=== PATIENT | male | born 1945 | race Caucasian/White ===

== ENCOUNTER 2018-03-01 16:59 | Inpatient (IN) ==
[2018-03-01] MEDS ORDERED: SALINE FLUSH 10ml SYRINGE IVF PRN (17:17)
[2018-03-01] MEDS ORDERED: NS 1,000 ML IV ONE ×2 (17:20→18:02)
--- NOTE | 2018-03-01 17:21 | Emergency Department Report ---
Dizziness HPI - General Chief Complaint: Dizziness <Gemini Bravo 03/01/18 17:24> Stated Complaint: light headed, low bp <Gemini Bravo 03/01/18 17:24> Time Seen by Provider: 03/01/18 17:09 <Gemini Bravo 03/01/18 17:24> Source: patient <Gemini Bravo 03/01/18 17:24> Mode of arrival: ambulatory <Gemini Bravo 03/01/18 17:24> Limitations: no limitations <Gemini Bravo 03/01/18 17:24> - History of Present Illness HPI Narrative: Today he not felt well. States that he has been dizzy and a little lightheaded. He decided to take his temp at home and it was in the 60s systolic. Had taken some Meclizine prior to that for the dizziness that he was having. States that he has had trouble with his blood pressure being low in the past. He does take Losartan, Metoprolol, and triamterene/HCTZ and has taken all of those today. He states that he has cut his metoprolol in 1/2 on his own about 3 months ago as he was feeling fatigued during the day and it he felt it was likely from the metoprolol. 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 Was recently diagnosed with shingles 2 weeks ago. <Gemini Bravo 03/01/18 18:25> MD complaint: dizziness <Gemini Bravo 03/01/18 17:24> Onset (ago): hour(s) <Gemini Bravo 03/01/18 17:24> Timing: sudden onset <Gemini Bravo 03/01/18 17:24> Description: lightheadedness <Gemini Bravo 03/01/18 17:24> Severity: moderate <Gemini Bravo 03/01/18 17:24> Relieving factors: remaining still <ShellyGemini Sutton 03/01/18 17:24> Exacerbating factors: movement <Gemini Bravo 03/01/18 17:24> Associated symptoms: denies other symptoms <Gemini Bravo - 03/01/18 17:24> - Related Data Home Medications Medication Instructions Recorded Confirmed Aspirin [Adult Low Dose Aspirin EC] 81 mg PO HS 07/12/17 03/01/18 Atorvastatin Calcium 40 mg PO HS 07/12/17 03/01/18 Diclofenac [Voltaren] 1 applicatio TP DAILY PRN 07/12/17 03/01/18 Insulin Aspart [Novolog] 5 unit SQ WL 07/12/17 03/01/18 Insulin Aspart [Novolog] 7 unit SQ WB 07/12/17 03/01/18 Insulin Aspart [Novolog] 10 unit SQ WS 07/12/17 03/01/18 Insulin Detemir [Levemir] 30 unit SQ BID 07/12/17 03/01/18 Loratadine [Claritin] 10 mg PO HS 07/12/17 03/01/18 Losartan [Cozaar] 50 mg PO DAILY 07/12/17 03/01/18 Meclizine [Antivert] 25 mg PO TID PRN 07/12/17 03/01/18 Metformin HCl [Glucophage] 1,000 mg PO BID 07/12/17 03/01/18 Metoprolol Succinate 25 mg PO HS 07/12/17 03/01/18 Saxagliptin [Onglyza] 5 mg PO DAILY 07/12/17 03/01/18 Triamterene/Hctz 37.5/25 Tab 0.5 tab PO DAILY 07/12/17 03/01/18 [MAXZIDE-25 eqv] PEG 3350 17gm PACKET [Miralax] 17 gm PO DAILY PRN 12/13/17 03/01/18 Tramadol [Ultram] 50 mg PO DAILY PRN 12/13/17 03/01/18 omega-3 fatty acids 1,000 mg 1,000 mg PO DAILY 01/04/18 03/01/18 capsule <Gemini Bravo - 03/01/18 17:24> Allergies Allergy/AdvReac Type Severity Reaction Status Date / Time No Known Allergies Allergy Verified 03/01/18 17:37 <Gemini Bravo - 03/01/18 17:24> Review of Systems All systems: reviewed and negative except as stated <ShellySueGemini N 03/01/18 17:24> Constitutional: Denies: fever, chills, weakness <[facility] 03[facility] 17: 24> Cardiovascular: Denies: chest pain, palpitations, dyspnea on exertion, edema < [facility],Gemini N 03/01/18 17:24> Respiratory: Denies: cough, dyspnea, wheezes <[facility],Gemini 03/01/18 17:24> Gastrointestinal: Denies: abdominal pain, nausea, vomiting, diarrhea <No, Gemini 03/01/18 17:24> Neurological: Reports: other (dizziness). Denies: headache, weakness, numbness , paresthesias <[facility] 03/01/18 17:24> [facility]LY [facility], [facility] Patient Stated Medical History Cerebrovascular Accident No Peripheral Neuropathy Yes: FEET Paralysis No Seizures No Syncope No Cataracts Yes: LEFT EYE Hearing Loss Yes: PER H&P Angina Yes: PER H&P-25 YEARS AGO Coronary Artery Disease Yes: PTCA X 4 Hypertension Yes Asthma Yes: PER PAST ADMIT Bronchitis No Chronic Obstructive Pulmonary No Disease (COPD) Pneumonia No Pulmonary Edema No Pulmonary Embolism No Sleep Apnea No Tuberculosis No Other Respiratory No Diabetes Mellitus Type 1 Yes Diabetes Mellitus Type 2 Yes Cirrhosis No Gastroesophageal Reflux Yes: AT TIMES Disease Gastrointestinal Bleeding No Hepatitis No Hiatal Hernia No Obstructive Bowel No Ulcer No Other GI Yes: CONSTIPATION Hx Kidney Stones Yes: PER H&P Hx Renal Disease NO RENAL DISEASE NOTED IN H&P Osteoarthritis Yes Other Musculoskeletal No Cellulitis Yes: PER H&P Shingles Yes Anesthesia Reactions No Blood Transfusions No Chemotherapy No Malignant Hyperthermia No Other No Depression No Post Menopausal No Now No Clinic Medical History (Last Updated 01/04/18 @ 11:35 by Sharon Contreras APRN) Arthritis (Acute Medical) Diabetes (Acute Medical) Diabetic neuropathy (Acute Medical) HTN (hypertension) (Acute Medical) <[facility] 03/01/18 17:24> Surgical History: Multiple orthopedic procedures. Recurrent right inguinal hernia repair with mesh 09/22/2017. Right inguinal hernia 1972. Appendectomy. Heart cath,no stenets, x3 early 1989's. Excision melanoma from back. colonoscopy tubular adenoma 04/01/2007 Dr. Mendoza at [place] <Cernaesjuan Sutton 17:24> Family History: Family History (Last Updated 01/04/18 @ 11:27 by Sharon Contreras APRN) Father Ruptured thoracic aortic aneurysm Mother Cancer of breast <TeresaceferinoGemini 03/01/18 17:24> - Social History Smoking status: Never smoker <TeresaJacobesjuan Sutton 03/01/18 17:24> second hand exposure: No <TeresaJacobesa 03/01/18 17:24> Substance use type: does not use <TeresaceferinoGemini 03/01/18 17:24> Alcohol intake frequency: does not drink <TeresaJacobesa 03/01/18 17:24> Does patient use chewing tobacco?: No <TeresaceferinoGemini 03/01/18 17:24> Physical Exam - Limitations Limitations: no limitations <TeresaceferinoGemini N 03/01/18 17:24> - General General appearance: alert, in no apparent distress <TeresaceferinoGemini 03/01/18 17:24> - Normal Exams: Neck:: Full range of motion, without adenopathy, JVD, bruits or thyromegaly < TeresaJacobesa 03/01/18 17:24> Chest/Respirations:: Clear all clancy, with good airflow, and symmetry bilaterally <TeresaceferinoGemini 03/01/18 17:24> Cardiovascular:: Regular rate and rhythm, without murmur or gallop, Pulses 2+ all extremities, capillary refill, <2 seconds all extremities <TeresaceferinoGemini 03/01/18 17:24> Abdomen:: Bowel sounds positive, soft, non-tender, non-distended, no hepatosplenomegaly, masses or bruits noted <TeresaJacobesa 03/01/18 17:24> Lymphatic:: No lymphadenopathy, or lymphedema noted <TeresaceferinoGemini 03/01/18 17:24> Neurological:: Patient is alert, and oriented, cranial nerves, motor/sensory/ cerebellar, exams w/o gross deficits, to observation <Cernaesjuan Sutton 17:24> Psychiatric:: Patient exhibits, appropriate attention, emotion and affect < Gemini Bravo - 03/01/18 17:24> Course Vital Signs Temperature 97.5 F 03/01/18 17:00 Pulse Rate 107 H 03/01/18 17:00 Respiratory Rate 18 03/01/18 17:00 Blood Pressure 112/60 03/01/18 17:00 Pulse Oximetry 94 03/01/18 17:00 Temperature 97.5 F 03/01/18 17:00 Pulse Rate 104 H 03/01/18 17:33 Respiratory Rate 23 03/01/18 17:33 Blood Pressure 86/56 03/01/18 17:33 Pulse Oximetry 97 03/01/18 17:33 <Gemini Bravo - 03/01/18 17:24> Dizziness - MDM Narrative Medical decision making narrative: Fluids infusing, 1 liter in and blood pressures are 93 systolic, pulse is 100. WBC slightly elevated, lactate is 2.9. UA is clear as well as chest xray. Did talk with Dr Salgado and he will go ahead and admit given lactate and blood pressures. Unknown infectious origin antibiotics initiated. <Gemini Bravo Herman - 03/01/18 18:25> - Lab Data Attestation: I reviewed the patient's lab results. <Gemini Bravo - 03/01/18 18:25> Result diagrams: 03/01/18 17:26 03/01/18 17:26 <Gemini Bravo - 03/01/18 17:24> Lab Results 03/01/18 03/01/18 03/01/18 Range/Units 17:26 17:26 18:04 WBC 13.2 H (4.5-11.0) T/MM3 RBC 5.28 (4.50-5.90) M/MM3 Hgb 15.5 (13.5-17.5) GM/DL Hct 46.3 (41-53) % MCV 87.7 (80-100) UM3 MCH 29.4 (26-34) UUG MCHC 33.5 (31-37) GM/DL RDW Std Deviation 46.9 (36.9-50.2) FL Plt Count 242 (130-400) T/MM3 MPV 9.6 (9.4-12.4) UM3 Immature Gran % (Auto) TNP Neut % (Auto) 56.0 (33-66) % Lymph % (Auto) 35.2 (23-45) % [place] % (Auto) 7.9 (0-9.0) % Eos % (Auto) 0.7 (0-4) % Baso % (Auto) 0.2 (0-2) % Neut # (Auto) 7.4 (1.8-7.7) T/MM3 Lymph # (Auto) 4.6 (1-4.8) T/MM3 [place] # (Auto) 1.0 H (0-0.8) T/MM3 Eos # (Auto) 0.1 (0-0.5) T/MM3 Baso # (Auto) 0.0 (0-0.2) T/MM3 Abs Immat Gran (auto) TNP Turbidity < 20 (0-20) Sodium 139 (134-144) MEQ/L Potassium 4.7 (3.6-5) MEQ/L Chloride 99 (98-107) MEQ/L Carbon Dioxide 26 (22-30) MEQ/L Anion Gap 14 (5-15) MEQ/L BUN 37.0 H (9-20) MG/DL Creatinine 1.5 (0.8-1.5) mg/dL Estimated Creat Clear 61 GFR Calculation 46 BUN/Creatinine Ratio 25 (6-26) RATIO Glucose 188 H (75-110) MG/DL Calculated Osmolality 282 H (261-280) MOSM/KG Calcium 10.2 (8.4-10.2) MG/DL Total Bilirubin 0.40 (0.20-1.30) MG/DL Icterus Index < 2 (0-7) AST 23 (17-59) U/L ALT 26 (1-50) U/L Alkaline Phosphatase 121 (38-126) U/L Troponin I 0.018 (0-0.12) ng/ml Total Protein 7.5 (6.3-8.2) g/dL Albumin 4.4 (3.5-5.0) g/dL Globulin 3.1 (2.4-3.6) G/DL Albumin/Globulin Ratio 1.4 (1.1-2.2) RATIO Plasma Lactate 2.9 H (0.6-2.2) MMOL/L Specimen Hemolysis < 15 (0-25) Ur Collection Type Urine, void-cc/notcc Urine Color Yellow (YELLOW) Urine Clarity Clear Urine pH 5.0 (5.0-8.0) Ur Specific [place] 1.025 (1.015-1.025) Urine Protein Trace A (NEGATIVE) Urine Glucose (UA) 1+ A (NEGATIVE) Urine Ketones 1+ A (NEGATIVE) Urine Occult Blood Negative (NEGATIVE) Urine Nitrate Negative (NEGATIVE) Urine Bilirubin Negative (NEGATIVE) Urine Urobilinogen 0.2 (NORMAL) EU/DL Ur Leukocyte Esterase Negative (NEGATIVE) Urinalysis Comment Microscopic not ind. <Tao Silva - 03/01/18 17:35> Lab Results 03/01/18 03/01/18 03/01/18 Range/Units 17:26 17:26 18:04 WBC 13.2 H (4.5-11.0) T/MM3 RBC 5.28 (4.50-5.90) M/MM3 Hgb 15.5 (13.5-17.5) GM/DL Hct 46.3 (41-53) % MCV 87.7 (80-100) UM3 MCH 29.4 (26-34) UUG MCHC 33.5 (31-37) GM/DL RDW Std Deviation 46.9 (36.9-50.2) FL Plt Count 242 (130-400) T/MM3 MPV 9.6 (9.4-12.4) UM3 Immature Gran % (Auto) TNP Neut % (Auto) 56.0 (33-66) % Lymph % (Auto) 35.2 (23-45) % [place] % (Auto) 7.9 (0-9.0) % Eos % (Auto) 0.7 (0-4) % Baso % (Auto) 0.2 (0-2) % Neut # (Auto) 7.4 (1.8-7.7) T/MM3 Lymph # (Auto) 4.6 (1-4.8) T/MM3 [place] # (Auto) 1.0 H (0-0.8) T/MM3 Eos # (Auto) 0.1 (0-0.5) T/MM3 Baso # (Auto) 0.0 (0-0.2) T/MM3 Abs Immat Gran (auto) TNP Turbidity < 20 (0-20) Sodium 139 (134-144) MEQ/L Potassium 4.7 (3.6-5) MEQ/L Chloride 99 (98-107) MEQ/L Carbon Dioxide 26 (22-30) MEQ/L Anion Gap 14 (5-15) MEQ/L BUN 37.0 H (9-20) MG/DL Creatinine 1.5 (0.8-1.5) mg/dL Estimated Creat Clear 61 GFR Calculation 46 BUN/Creatinine Ratio 25 (6-26) RATIO Glucose 188 H (75-110) MG/DL Calculated Osmolality 282 H (261-280) MOSM/KG Calcium 10.2 (8.4-10.2) MG/DL Total Bilirubin 0.40 (0.20-1.30) MG/DL Icterus Index < 2 (0-7) AST 23 (17-59) U/L ALT 26 (1-50) U/L Alkaline Phosphatase 121 (38-126) U/L Troponin I 0.018 (0-0.12) ng/ml Total Protein 7.5 (6.3-8.2) g/dL Albumin 4.4 (3.5-5.0) g/dL Globulin 3.1 (2.4-3.6) G/DL Albumin/Globulin Ratio 1.4 (1.1-2.2) RATIO Plasma Lactate 2.9 H (0.6-2.2) MMOL/L Specimen Hemolysis < 15 (0-25) Ur Collection Type Urine, void-cc/notcc Urine Color Yellow (YELLOW) Urine Clarity Clear Urine pH 5.0 (5.0-8.0) Ur Specific [place] 1.025 (1.015-1.025) Urine Protein Trace A (NEGATIVE) Urine Glucose (UA) 1+ A (NEGATIVE) Urine Ketones 1+ A (NEGATIVE) Urine Occult Blood Negative (NEGATIVE) Urine Nitrate Negative (NEGATIVE) Urine Bilirubin Negative (NEGATIVE) Urine Urobilinogen 0.2 (NORMAL) EU/DL Ur Leukocyte Esterase Negative (NEGATIVE) Urinalysis Comment Microscopic not ind. <Gemini Bravo 03/01/18 18:25> - Radiology Data Attestation: I reviewed the patient's radiology results. <Gemini Bravo 03/15 18:25> Chest xray: no acute cardiopulmonary process <Cernaesa N - 03/01/18 18:25> - EKG Data EKG #1 EKG results narrative: Accelerated junctional rhythm. 107 bpm. No STEMI. <Tao Silva Suzette - 03/01/18 17:35> Disposition Clinical Impression: Sepsis Qualifiers: Sepsis type: sepsis due to unspecified organism Qualified Code(s): A41.9 - Sepsis, unspecified organism <TeresaceferinoGemini N 03/01/18 18:25> Disposition: 02 To [facility] Acute Care <NoceferinoGemini N 03/01/18 18:25> Condition: Stable <NocfeerinoGemini N 03/01/18 18:25> Instructions: <TeresaceferinoGemini N 03/01/18 17:24> Prescriptions: No Action Metoprolol Succinate 25 mg PO HS Aspirin [Adult Low Dose Aspirin EC] 81 mg PO HS Insulin Aspart [Novolog] 10 unit SQ WS Insulin Aspart [Novolog] 5 unit SQ WL Insulin Detemir [Levemir] 30 unit SQ BID Meclizine [Antivert] 25 mg PO TID PRN PRN Reason: Dizziness Losartan [Cozaar] 50 mg PO DAILY Diclofenac [Voltaren] 1 applicatio TP DAILY PRN PRN Reason: Pain Atorvastatin Calcium 40 mg PO HS Triamterene/Hctz 37.5/25 Tab [MAXZIDE-25 eqv] 0.5 tab PO DAILY Saxagliptin [Onglyza] 5 mg PO DAILY PEG 3350 17gm PACKET [Miralax] 17 gm PO DAILY PRN PRN Reason: Constipation Tramadol [Ultram] 50 mg PO DAILY PRN PRN Reason: Pain Loratadine [Claritin] 10 mg PO HS Insulin Aspart [Novolog] 7 unit SQ WB Metformin HCl [Glucophage] 1,000 mg PO BID omega-3 fatty acids 1,000 mg capsule 1,000 mg PO DAILY <NocefernioGemini N 03/15 17:24> Referrals: Joni Montilla MD [Family Provider] - <Gemini Bravo - 17:24> Forms: <Gemini Bravo - 03/01/18 17:24> Time of Disposition: 18:22 <NoPipo de la vegaa N - 03/01/18 18:25> - Seen By: midlevel <Gemini Bravo N - 03/01/18 18:25>
[2018-03-01] MEDS ORDERED: LEVOFLOXACIN PB 750 MG/150 ML BAG IV SCH (18:00)
[2018-03-01] MEDS ORDERED: CEFEPIME 1 GM in NS 100 ML IV ONE (18:00)
[2018-03-01] MEDS ORDERED: VANCOMYCIN - PHARMACY CONSULT MC ONE (18:30)
--- NOTE | 2018-03-01 18:45 | History & Physical Report ---
History of Present Illness Date: 03/01/18 Chief complaint: Dizziness, Severe sepsis HPI: Abigail is a 72 yr old male who presents to ER for evaluation of dizziness. Patient states that he did not feel well yesterday as he was somewhat fatigued. This morning he woke up and began feeling dizzy. He did not improve throughout the day and so he checked his blood pressure at home. He was found to be hypotensive with a systolic in the 60s. He contacted his primary care provider, Dr. Montilla's office who recommended emergency room evaluation and treatment. Initial blood pressure in the emergency room was 112/60, however, it has decreased to 82/49. Patient has been tachycardic heart rate of 107. White count was find be mildly elevated at 13.2. Chemistry panel overall unremarkable, troponin 0.018, venous lactate is elevated at 2.9. Urinalysis showed trace protein, 1+ glucose and 1+ ketones. Chest x-ray was unremarkable. She was given IV fluid bolus given hypotension and tachycardia as he didn't like for sepsis. He was then started on IV cefepime and IV vancomycin for antimicrobial coverage. The hospitalist services were contacted and accepted patient for inpatient admission or evaluation and treatment. She does report that he has had intermittent episodes of dizziness over the past year and reports that "no one can figure out why." He does take meclizine as needed. He also reports that he was diagnosed with shingles 2 weeks ago and has been on steroids since that time. He has noted that his blood sugars have been slightly elevated since on steroids. Otherwise has had no recent illnesses or injuries. Denies any fevers or chills. Review of Systems All systems PM: 10-point ROS was reviewed, no additional remarkable complaints except - Constitutional Constitutional: Present: fatigue - Integumentary/Breasts Integumentary: Present: lesions (Recent shingles, Right forehead) - Neurological Neurological: Present: dizziness Past Medical History Medical History: Medical History (Last Updated 01/04/18 @ 11:35 by Sharon Contreras APRN) Arthritis Diabetes Diabetic neuropathy HTN (hypertension) Medical History Updates: Chronic dizziness. Shingles Surgical History: Colonoscopy-01/30/18- Dr. De Leon. Multiple orthopedic procedures. Recurrent right inguinal hernia repair with mesh 09/22/2017. Right inguinal hernia 1971. Appendectomy. Heart cath,no stenets, x3 early 1989 's. Excision melanoma from back. colonoscopy tubular adenoma 04/01/2007 Dr. 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 Mnotilla Manager Documentation is unknown, patient reports he saw somebody in [place] years ago Medications Home Medications Medication Instructions Recorded Confirmed Type Aspirin [Adult Low Dose Aspirin EC] 81 mg PO HS 07/12/17 03/01/18 History Atorvastatin Calcium 40 mg PO HS 07/12/17 03/01/18 History Diclofenac [Voltaren] 1 applicatio TP DAILY PRN 07/12/17 03/01/18 History Insulin Aspart [Novolog] 5 unit SQ WL 07/12/17 03/01/18 History Insulin Aspart [Novolog] 7 unit SQ WB 07/12/17 03/01/18 History Insulin Aspart [Novolog] 10 unit SQ WS 07/12/17 03/01/18 History Insulin Detemir [Levemir] 30 unit SQ BID 07/12/17 03/01/18 History Loratadine [Claritin] 10 mg PO HS 07/12/17 03/01/18 History Losartan [Cozaar] 50 mg PO DAILY 07/12/17 03/01/18 History Meclizine [Antivert] 25 mg PO TID PRN 07/12/17 03/01/18 History Metformin HCl [Glucophage] 1,000 mg PO BID 07/12/17 03/01/18 History Metoprolol Succinate 25 mg PO HS 07/12/17 03/01/18 History Saxagliptin [Onglyza] 5 mg PO DAILY 07/12/17 03/01/18 History Triamterene/Hctz 37.5/25 Tab 0.5 tab PO DAILY 07/12/17 03/01/18 History [MAXZIDE-25 eqv] PEG 3350 17gm PACKET [Miralax] 17 gm PO DAILY PRN 12/13/17 03/01/18 History Tramadol [Ultram] 50 mg PO DAILY PRN 12/13/17 03/01/18 History omega-3 fatty acids 1,000 mg 1,000 mg PO DAILY 01/04/18 03/01/18 History capsule Acyclovir [Zovirax] 800 mg PO 5XD 03/01/18 03/01/18 History cephALEXin [Cephalexin] 500 mg PO BID 03/01/18 03/01/18 History Allergies Allergy/AdvReac Type Severity Reaction Status Date / Time No Known Allergies Allergy Verified 03/01/18 17:37 Exam Vital Signs: Temperature 97.5 F 03/01/18 17:00 Pulse Rate 104 H 03/01/18 17:33 Respiratory Rate 23 03/01/18 17:33 Blood Pressure 86/56 03/01/18 17:33 Pulse Oximetry 97 03/01/18 17:33 Height/Weight/BMI: Height 1.8 m Weight 94.1 kg Results - Labs CBC & Chem 7: 03/01/18 17:26 03/01/18 17:26 Microbiology Results: Microbiology 03/01/18 18:04 Peripheral/Iv Start Gram Stain - Final Not performed 03/01/18 18:04 Peripheral/Iv Start Gram Stain - Final Not performed Assessment and Plan Assessment and Plan: Impression Rule out severe sepsis - leukocytosis, elevated venous lactate, tachycardia, hypotension Uncertain bacterial etiology Shingles- currently under treatment with Prednisone (completed 2 days ago), Keflex, Acyclovir Hypotension Tachycardia Leukocytosis Chronic Dizziness Type II diabetes Hypertension Diabetic neuropathy Arthritis Plan Admit patient to inpatient status under the care of Dr. Salgado to ICU for close monitoring. At time of admission. Patient does meet sepsis criteria. Given elevated venous lactate of 2.9, as well as tachycardia and hypotension. Etiology of infectious source is unknown at admission time. Will cover patient with triple antibiotic therapy including Levaquin, vancomycin and cefepime. Hopeful to narrowed this treatment regimen as soon as we are able. Blood cultures are pending. Repeat serial venous lactate as per sepsis protocol. Patient given IV fluid bolus, 30 ML per kilogram. If he has persistent hypotension may need to consider initiation of IV pressors. Will need to monitor hypotension carefully. qSOFA score- 1/3 at this time indicating low risk. Will repeat qSOFA score with any clinical changes Patient has been under the treatment course of acyclovir, Keflex, for acute shingles. He completed Prednisone 2 days ago. Will continue with IV Acyclovir as sepsis process could potentially be viral in nature given recent shingle infection. He does chronically take metformin, which could cause an elevation in plasma lactate. Will hold at time of admission, and manage glycemic control with insulin Monitor Accu-Cheks and continue on home regimen of NovoLog and Levemir SCDs to bilateral lower extremity for DVT prophylaxis Patient does wish to be a full code and this orders written Will discuss further orders and plan of care with attending, Dr. Salgado At time of discharge medical care will return to primary care provider, Dr Montilla DVT Prophylaxis: SCD's Resuscitation Status: Full Code - Time spent with patient Time with patient PN: 50 minutes - Physician Narrative Physician: Pj Salgado MD Narrative: Date: 03/01/18 Time: 2009 Have independently interviewed and examined pt. Chart reviewed. Case discussed with ED provider, family, and my [employer]. Care plan developed with my supervision; agree with above. Presents to ED secondary to increasing weakness, dizziness, and low BP. Recent shingles - started on cephalexin, acyclovir, and Prednisone. Today, feeling more weak and dizzy than usual (typically very active and will walk 3-4 miles a day). BP low at home. Notes slight SOA but not much cough/congestion. No chest pressure or palpitations. No sinus pain or pressure-mild rhinitis. Urine stable. Bowel function stable. No f/c. Evaluated in ED. CXR and UA neg for infection. BP low and HR increased. WBC with elevation. Lactate elevated. With concern for severe sepsis, patient placed in inpatient admission at [facility] for supportive treatment. Lungs: decreased, no distress CV: tachy, regular AB: soft nt/nd EXT: no edema MSE: awake alert appropriate Plan: Will place in inpatient admission status at [facility] to r/o severe sepsis - no obvious source, but markers for sepsis present. Potentially septic marker could be medication induced (Prednisone increasing WBC, Metformin increasing lactic acid, and BP medications lowering blood pressure). Prudent to initiate aggressive supportive care. CCU care for monitoring of BP - trending up since IVF started, but need to be certain BP sustains. Triple antibiotic therapy. Hold BP meds, Metformin, Prednisone. Monitor lab. Will recheck CXR in am to exclude occult infiltrate. Sepsis Assessment - Evaluation SIRS Criteria: pulse > 90 beats/minute, WBC > 12,000 Severe Sepsis: hypotension (SBP <90 or MAP <65 x2 readings), lactate > 2.0 mg/dL Hospital Course Summary Disclaimer: The visit summary below is not to be considered part of the above Progress Note. Hospital Course: Impression Severe sepsis- leukocytosis, elevated venous lactate, tachycardia, hypotension Shingles- currently under treatment with Prednisone (completed 2 days ago), Keflex, Acyclovir Hypotension Tachycardia Chronic Dizziness Type II diabetes Hypertension Diabetic neuropathy Arthritis Plan Admit patient to inpatient status under the care of Dr. Salgado to ICU for close monitoring. At time of admission. Patient does meet sepsis criteria. Given elevated venous lactate of 2.9, as well as tachycardia and hypotension. Etiology of infectious source is unknown at admission time. Will cover patient with triple antibiotic therapy including Levaquin, vancomycin and cefepime. Hopeful to narrowed this treatment regimen as soon as we are able. Blood cultures are pending. Repeat serial venous lactate as per sepsis protocol. Patient given IV fluid bolus, 30 ML per kilogram. If he has persistent hypotension may need to consider initiation of IV pressors. Will need to monitor hypotension carefully. qSOFA score- 1/3 at this time indicating low risk. Will repeat qSOFA score with any clinical changes Patient has been under the treatment course of acyclovir, Keflex, for acute shingles. He completed Prednisone 2 days ago. Will continue with IV Acyclovir as sepsis process could potentially be viral in nature given recent shingle infection. He does chronically take metformin, which could cause an elevation in plasma lactate. Will hold at time of admission, and manage glycemic control with insulin Monitor Accu-Cheks and continue on home regimen of NovoLog and Levemir SCDs to bilateral lower extremity for DVT prophylaxis Patient does wish to be a full code and this orders written Will discuss further orders and plan of care with attending, Dr. Salgado At time of discharge medical care will return to primary care provider, Dr Montilla
[2018-03-01] MEDS ORDERED: ACYCLOVIR IV 500 MG in NS 100 ML IV SCH (19:00)
[2018-03-01] MEDS ORDERED: DEXTROSE 50% SYRINGE 50ml (1 AMP) IVP PRN (19:19)
[2018-03-01] MEDS ORDERED: CALCIUM CARBONATE Chewable 500mg TABLET PO PRN (19:19)
[2018-03-01] MEDS ORDERED: ACETAMINOPHEN 325 MG TABLET PO PRN (19:19)
[2018-03-01] MEDS ORDERED: BISACODYL 10 MG SUPPOSITORY RECTALLY PRN (19:19)
[2018-03-01] MEDS ORDERED: GLUCOSE ORAL GEL 40% 37.5gm PO PRN (19:19)
[2018-03-01] MEDS ORDERED: ONDANSETRON 4 MG/2 ML INJECTION IVP PRN (19:19)
[2018-03-01] MEDS ORDERED: TRAMADOL 50 MG TABLET PO PRN (19:19)
[2018-03-01] MEDS ORDERED: MECLIZINE 25 MG TABLET PO PRN (19:19)
[2018-03-01] MEDS ORDERED: POLYETHYL GLYCOL 3350 17gm PACKET PO PRN (19:19)
[2018-03-01 19:29] VITALS: BMI 29.0
[2018-03-01] MEDS: NS 1,000 ML IV SCH (20:15)
[2018-03-01] MEDS: CEFEPIME 1 GM in NS 100 ML IV SCH (20:15)
[2018-03-01] MEDS: ASPIRIN *EC* 81 MG TABLET PO SCH (21:31)
[2018-03-01] MEDS: LORATADINE 10 MG TABLET PO SCH (21:31)
[2018-03-01] MEDS: INSULIN DETEMIR 100unit/ml INJECTION SQ SCH (21:31)
[2018-03-01] MEDS: ACYCLOVIR 800 MG TABLET PO SCH (21:31)
[2018-03-02] MEDS: CEFEPIME 1 GM in NS 100 ML IV SCH ×4 (00:56→19:49)
[2018-03-02] MEDS: NS 1,000 ML IV SCH ×5 (06:15→19:19)
[2018-03-02] MEDS: ATORVASTATIN 40 MG TABLET PO SCH ×2 (06:52→20:47)
--- NOTE | 2018-03-02 08:07 | XRay Report ---
Indication: hypotension PROCEDURE: XR chest 1V: Encounter: Initial Comparison: July 12, 2017 FINDINGS: The lungs are clear. There is no abnormal airspace opacity, pleural effusion or pneumothorax identified. The heart size, pulmonary vasculature and mediastinum are within normal limits. No significant skeletal abnormality is seen. IMPRESSION: No acute cardiopulmonary abnormality. .
[2018-03-02] MEDS: INSULIN ASPART 100unit/ml INJECTION SQ SCH ×2 (08:30→12:15)
--- NOTE | 2018-03-02 08:30 | XRay Report ---
Indication: ? infiltrate PROCEDURE: XR chest 1V: Encounter: Initial Comparison: March 01, 2018 FINDINGS: The lungs are clear. There is no abnormal airspace opacity, pleural effusion or pneumothorax identified. The heart size, pulmonary vasculature and mediastinum are within normal limits. No significant skeletal abnormality is seen. IMPRESSION: No acute cardiopulmonary abnormality. .
[2018-03-02] MEDS: OMEGA-3 ACID ESTERS 1 GM CAPSULE PO SCH (08:31)
[2018-03-02] MEDS: ACYCLOVIR 800 MG TABLET PO SCH ×5 (08:31→20:36)
[2018-03-02] MEDS: SAXAGLIPTIN 5 MG PO SCH (08:31)
[2018-03-02] MEDS: INSULIN DETEMIR 100unit/ml INJECTION SQ SCH ×2 (09:02→20:45)
--- NOTE | 2018-03-02 09:52 | Progress Note ---
- Date 03/02/18 Subjective: F/U: Rule out severe sepsis - leukocytosis, elevated venous lactate, tachycardia , hypotension Doing better today-feels less weak/dizzy. Breathing stable-not having increasing SOA or cough, slight congestion. No pain with breathing. No chest pressure or heaviness. Denies ab pain or nausea. Appetite stable. Urinating well. No f/c. Does note slight nasal congestion. Reports a tooth is starting to hurt. Objective Vital signs: Temperature 98.4 F 03/02/18 07:00 Pulse Rate 93 03/02/18 08:00 Respiratory Rate 20 03/02/18 07:00 Blood Pressure 105/68 03/02/18 07:00 Pulse Oximetry 96 03/02/18 07:00 Height/Weight/BMI: Height 1.8 m Weight 94 kg Body Mass Index 29.0 - Constitutional Present: well nourished, well developed, average body habitus, cooperative - Routine HEENT Exam Head: Present: normocephalic, atraumatic Eye: Present: EOMI, PERRL - Routine Respiratory Exam Present: CTA bilaterally. Absent: rales, respiratory distress, rhonchi, stridor , wheezes, crackles - Routine Cardiovascular Exam Present: RRR, no murmur - Routine Abdominal Exam Present: soft, normoactive bowel sounds, non distended, non tender. Absent: guarding - Routine Extremities Exam Present: no edema, pulses intact. Absent: cyanosis, clubbing - Routine Musculoskeletal Exam Musculoskeletal: Present: no clubbing or cyanosis, normal strength - Routine Skin Exam Present: dry, warm - Routine Neurological Exam Present: alert, oriented X3, CN II-XII intact, moving all extremities, vision grossly intact, hearing grossly intact, normal speech. Absent: motor deficit, altered mental status - Routine Psychiatric Exam Present: normal affect, normal thought process, cooperative Results - Labs CBC & Chem 7: 03/02/18 04:23 03/02/18 04:23 Assessment and Plan Assessment and Plan: Impression Rule out severe sepsis - leukocytosis, elevated venous lactate, tachycardia, hypotension Uncertain bacterial etiology Shingles- currently under treatment with Prednisone (completed 2 days ago), Keflex, Acyclovir Hypotension Tachycardia Leukocytosis Chronic Dizziness Type II diabetes Hypertension Diabetic neuropathy Arthritis Plan Clinically improving - BP increasing, WBC normalize, creatinine decreased from 1.5 to 1.0, lactate decreased, repeat CXR without infiltrate. Will continue cefepime and levofloxacin for coverage, can stop vancomycin. Continue IVF of NS at 125cc/hr. Will continue to hold antihypertensives. Encourage ambulation. Add nasal saline for nasal congestion. Recheck CBC and BMP in am due to potential severe sepsis. Transfer to medical floor for care. 1855 Rechecked on patient this evening. Continues to do well. BP increasing (130 systolic). Breathing stable. Will decrease IVF to 75cc/hr. Case discussed with CCU nursing and pt's . Time spent with patient care 35 minutes. DVT Prophylaxis: SCD's Resuscitation Status: Full Code - Time spent with patient Time with patient PN: 35 minutes Coordination of Care: >50% of visit spent providing counseling/coordination of care - Physician Narrative Physician: Pj Salgado MD Narrative: Date: 03/02/18 Time: 948 Hospital Course Summary Disclaimer: The visit summary below is not to be considered part of the above Progress Note. Hospital Course: 03/01/18 Admission Admit patient to inpatient status under the care of Dr. Salgado to ICU for close monitoring. At time of admission. Patient does meet sepsis criteria. Given elevated venous lactate of 2.9, as well as tachycardia and hypotension. Etiology of infectious source is unknown at admission time. Will cover patient with triple antibiotic therapy including Levaquin, vancomycin and cefepime. Hopeful to narrowed this treatment regimen as soon as we are able. Blood cultures are pending. Repeat serial venous lactate as per sepsis protocol. Patient given IV fluid bolus, 30 ML per kilogram. If he has persistent hypotension may need to consider initiation of IV pressors. Will need to monitor hypotension carefully. qSOFA score- 1/3 at this time indicating low risk. Will repeat qSOFA score with any clinical changes. Patient has been under the treatment course of acyclovir, Keflex, for acute shingles. He completed Prednisone 2 days ago. Will continue with IV Acyclovir as sepsis process could potentially be viral in nature given recent shingle infection. He does chronically take metformin, which could cause an elevation in plasma lactate. Will hold at time of admission, and manage glycemic control with insulin. Monitor Accu-Cheks and continue on home regimen of NovoLog and Levemir. SCDs to bilateral lower extremity for DVT prophylaxis. Patient does wish to be a full code and this orders written. At time of discharge medical care will return to primary care provider, Dr Montilla. 03/02/18 Clinically improving - BP increasing, WBC normalize, creatinine decreased from 1.5 to 1.0, lactate decreased, repeat CXR without infiltrate. Will continue cefepime and levofloxacin for coverage, can stop vancomycin. Continue IVF of NS at 125cc/hr. Will continue to hold antihypertensives. Encourage ambulation. Add nasal saline for nasal congestion. Transfer to medical floor for care. 1855 Rechecked on patient this evening. Continues to do well. BP increasing (130 systolic). Breathing stable. Will decrease IVF to 75cc/hr.
[2018-03-02] MEDS: SALINE 0.65% NASAL SPRAY 44 ML BOTTLE EA NOSTRIL SCH ×4 (12:16→20:36)
[2018-03-02] MEDS ORDERED: INSULIN ASPART 100unit/ml INJECTION SQ SCH (17:30)
[2018-03-02] MEDS ORDERED: LEVOFLOXACIN PB 750 MG/150 ML BAG IV SCH (18:00)
[2018-03-02] MEDS: LORATADINE 10 MG TABLET PO SCH (20:37)
[2018-03-02] MEDS: ASPIRIN *EC* 81 MG TABLET PO SCH (20:47)
[2018-03-03] MEDS: CEFEPIME 1 GM in NS 100 ML IV SCH ×3 (02:15→13:50)
[2018-03-03 07:40] VITALS: BP 133/66; RESP 20; O2SAT 98
[2018-03-03] MEDS: NS 1,000 ML IV SCH (08:50)
[2018-03-03] MEDS: OMEGA-3 ACID ESTERS 1 GM CAPSULE PO SCH (08:52)
[2018-03-03] MEDS: SAXAGLIPTIN 5 MG PO SCH (08:52)
[2018-03-03] MEDS: ACYCLOVIR 800 MG TABLET PO SCH ×2 (08:52→12:56)
[2018-03-03] MEDS: SALINE 0.65% NASAL SPRAY 44 ML BOTTLE EA NOSTRIL SCH ×2 (08:52→12:56)
[2018-03-03] MEDS: INSULIN ASPART 100unit/ml INJECTION SQ SCH ×2 (09:26→12:56)
[2018-03-03] MEDS: INSULIN DETEMIR 100unit/ml INJECTION SQ SCH (09:27)
[2018-03-03 09:35] VITALS: TEMP 97.6
[2018-03-03 10:06] VITALS: PULSE 64
--- NOTE | 2018-03-03 10:56 | Progress Note ---
- Date 03/03/18 Subjective: F/U: Rule out severe sepsis - leukocytosis, elevated venous lactate, tachycardia , hypotension Doing really well. Breathing well without SOA, cough or congestion. No pain with breathing. No f/c. Eating well. No nausea or ab pain. Stools stable. Urinating well. Strength doing well. Ambulating without difficulty. Feeling up to going home. Objective Vital signs: Temperature 97.6 F 03/03/18 07:39 Pulse Rate 64 03/03/18 08:00 Respiratory Rate 20 03/03/18 07:39 Blood Pressure 133/66 03/03/18 07:39 Pulse Oximetry 98 03/03/18 07:39 Height/Weight/BMI: Height 1.8 m Weight 94.2 kg Body Mass Index 29.0 - Constitutional Present: no acute distress, average body habitus, cooperative - Routine HEENT Exam Head: Present: normocephalic, atraumatic Eye: Present: EOMI, PERRL ENT: Present: mucous membranes moist - Routine Respiratory Exam Present: CTA bilaterally. Absent: rales, respiratory distress, rhonchi, stridor , wheezes, crackles - Routine Cardiovascular Exam Present: RRR, no murmur - Routine Abdominal Exam Present: soft, normoactive bowel sounds, non distended, non tender. Absent: guarding - Routine Extremities Exam Present: no edema, pulses intact. Absent: cyanosis, clubbing - Routine Musculoskeletal Exam Musculoskeletal: Present: no clubbing or cyanosis, normal strength - Routine Skin Exam Present: intact, dry, warm - Routine Neurological Exam Present: alert, oriented X3, CN II-XII intact, moving all extremities, vision grossly intact, hearing grossly intact, normal speech. Absent: motor deficit, altered mental status - Routine Psychiatric Exam Present: normal affect, normal thought process, cooperative Results - Labs CBC & Chem 7: 03/03/18 04:00 03/03/18 04:00 Assessment and Plan (1) Severe sepsis Current visit: Yes Status: Acute Assessment and Plan: Impression Severe sepsis - leukocytosis, elevated venous lactate, tachycardia, hypotension Uncertain bacterial etiology Shingles- currently under treatment with Prednisone (completed 2 days ago), Keflex, Acyclovir Hypotension Tachycardia Leukocytosis Chronic Dizziness Type II diabetes Hypertension Diabetic neuropathy Arthritis Plan Clinically improved. BP stable. WBC normal at 7.2 and creatinine at baseline of 0.8. No f/c. Sugars stable. Can discharge to home - medically stable Will have pt HOLD Cozaar - BP stable. May continue Metoprolol. Patient will monitor his BP and pulse. Can restart home diabetic medications. Will change cephalexin to amoxicillin for 5 days for continued antibiotic coverage. F/U with Dr Montilla in 1 week for reevaluation. See orders for details. Case discussed with patient and his . Time spent with patient care and discharge greater than 30 minutes. DVT Prophylaxis: SCD's Resuscitation Status: Full Code - Physician Narrative Physician: Pj Salgado MD Narrative: Date: 03/03/18 Time: 1050 Hospital Course Summary Disclaimer: The visit summary below is not to be considered part of the above Progress Note. Hospital Course: 03/01/18 Admission Admit patient to inpatient status under the care of Dr. Salgado to ICU for close monitoring. At time of admission. Patient does meet sepsis criteria. Given elevated venous lactate of 2.9, as well as tachycardia and hypotension. Etiology of infectious source is unknown at admission time. Will cover patient with triple antibiotic therapy including Levaquin, vancomycin and cefepime. Hopeful to narrowed this treatment regimen as soon as we are able. Blood cultures are pending. Repeat serial venous lactate as per sepsis protocol. Patient given IV fluid bolus, 30 ML per kilogram. If he has persistent hypotension may need to consider initiation of IV pressors. Will need to monitor hypotension carefully. qSOFA score- 1/3 at this time indicating low risk. Will repeat qSOFA score with any clinical changes. Patient has been under the treatment course of acyclovir, Keflex, for acute shingles. He completed Prednisone 2 days ago. Will continue with IV Acyclovir as sepsis process could potentially be viral in nature given recent shingle infection. He does chronically take metformin, which could cause an elevation in plasma lactate. Will hold at time of admission, and manage glycemic control with insulin. Monitor Accu-Cheks and continue on home regimen of NovoLog and Levemir. SCDs to bilateral lower extremity for DVT prophylaxis. Patient does wish to be a full code and this orders written. At time of discharge medical care will return to primary care provider, Dr Montilla. 03/02/18 Clinically improving - BP increasing, WBC normalize, creatinine decreased from 1.5 to 1.0, lactate decreased, repeat CXR without infiltrate. Will continue cefepime and levofloxacin for coverage, can stop vancomycin. Continue IVF of NS at 125cc/hr. Will continue to hold antihypertensives. Encourage ambulation. Add nasal saline for nasal congestion. Transfer to medical floor for care. 1854 Rechecked on patient this evening. Continues to do well. BP increasing (130 systolic). Breathing stable. Will decrease IVF to 75cc/hr. 03/03/18 Clinically improved. BP stable. WBC normal at 7.2 and creatinine at baseline of 0.8. No f/c. Sugars stable. Can discharge to home - medically stable Will have pt HOLD Cozaar - BP stable. May continue Metoprolol. Patient will monitor his BP and pulse. Can restart home diabetic medications. Will change cephalexin to amoxicillin for 5 days for continued antibiotic coverage. F/U with Dr Montilla in 1 week for reevaluation. See orders for details.
--- NOTE | 2018-03-09 16:37 | Discharge Summary ---
Discharge Information Date of admission: 03/01/18 18:21 Anticipated date of discharge: 03/03/18 Attending Physician: Pj Salgado MD Primary care physician: Joni Montilla MD - Discharge Diagnosis (1) Severe sepsis Status: Acute Discharge diagnosis Severe sepsis - leukocytosis, elevated venous lactate, tachycardia, hypotension Uncertain bacterial etiology Associated conditions and complications Shingles- currently under treatment with Prednisone (completed 2 days ago), Keflex, Acyclovir Hypotension Tachycardia Leukocytosis Chronic Dizziness Type II diabetes Hypertension Diabetic neuropathy Arthritis - Laboratory Labs: Admit Labs 03/01/18 17:26 WBC 13.2 H Hgb 15.5 Hct 46.3 MCV 87.7 Plt Count 242 Neut % (Auto) 56.0 Lymph % (Auto) 35.2 [place] % (Auto) 7.9 Eos % (Auto) 0.7 Baso % (Auto) 0.2 Admit Lab 03/01/18 17:26 Sodium 139 Potassium 4.7 Chloride 99 Carbon Dioxide 26 Anion Gap 14 BUN 37.0 H Creatinine 1.5 Estimated Creat Clear 61 GFR Calculation 46 BUN/Creatinine Ratio 25 Glucose 188 H Calculated Osmolality 282 H Calcium 10.2 Total Bilirubin 0.40 AST 23 ALT 26 Alkaline Phosphatase 121 Troponin I 0.018 Total Protein 7.5 Albumin 4.4 Globulin 3.1 Albumin/Globulin Ratio 1.4 Plasma Lactate 2.9 H 03/03/18 04:00 03/03/18 04:00 - Microbiology Blood cultures with: No growth - Radiology Radiology: Date of Exam: 03/01/18 Type of Exam: XR chest 1V FINDINGS: The lungs are clear. There is no abnormal airspace opacity, pleural effusion or pneumothorax identified. The heart size, pulmonary vasculature and mediastinum are within normal limits. No significant skeletal abnormality is seen. IMPRESSION: No acute cardiopulmonary abnormality. Date of Exam: 03/02/18 Type of Exam: XR chest 1V FINDINGS: The lungs are clear. There is no abnormal airspace opacity, pleural effusion or pneumothorax identified. The heart size, pulmonary vasculature and mediastinum are within normal limits. No significant skeletal abnormality is seen. IMPRESSION: No acute cardiopulmonary abnormality. History of Present Illness HPI: Abigail is a 72 yr old male who presents to ER for evaluation of dizziness. Patient states that he did not feel well yesterday as he was somewhat fatigued. This morning he woke up and began feeling dizzy. He did not improve throughout the day and so he checked his blood pressure at home. He was found to be hypotensive with a systolic in the 60s. He contacted his primary care provider, Dr. Montilla's office who recommended emergency room evaluation and treatment. Initial blood pressure in the emergency room was 112/60, however, it has decreased to 82/49. Patient has been tachycardic heart rate of 107. White count was find be mildly elevated at 13.2. Chemistry panel overall unremarkable, troponin 0.018, venous lactate is elevated at 2.9. Urinalysis showed trace protein, 1+ glucose and 1+ ketones. Chest x-ray was unremarkable. She was given IV fluid bolus given hypotension and tachycardia as he didn't like for sepsis. He was then started on IV cefepime and IV vancomycin for antimicrobial coverage. The hospitalist services were contacted and accepted patient for inpatient admission or evaluation and treatment. She does report that he has had intermittent episodes of dizziness over the past year and reports that "no one can figure out why." He does take meclizine as needed. He also reports that he was diagnosed with shingles 2 weeks ago and has been on steroids since that time. He has noted that his blood sugars have been slightly elevated since on steroids. Otherwise has had no recent illnesses or injuries. Denies any fevers or chills. For complete details of the H&P refer to that document. Objective Vital signs: Temperature 97.6 F 03/03/18 07:39 Pulse Rate 64 03/03/18 08:00 Respiratory Rate 20 03/03/18 07:39 Blood Pressure 133/66 03/03/18 07:39 Pulse Oximetry 98 03/03/18 07:39 Height/Weight/BMI: Height 1.8 m Weight 94.2 kg Body Mass Index 29.0 Hospital Course This is a general summary of the patient's hospital course. For more details refer to the complete medical record. Hospital course: 03/01/18 Admission Admit patient to inpatient status under the care of Dr. Salgado to ICU for close monitoring. At time of admission. Patient does meet sepsis criteria. Given elevated venous lactate of 2.9, as well as tachycardia and hypotension. Etiology of infectious source is unknown at admission time. Will cover patient with triple antibiotic therapy including Levaquin, vancomycin and cefepime. Hopeful to narrowed this treatment regimen as soon as we are able. Blood cultures are pending. Repeat serial venous lactate as per sepsis protocol. Patient given IV fluid bolus, 30 ML per kilogram. If he has persistent hypotension may need to consider initiation of IV pressors. Will need to monitor hypotension carefully. qSOFA score- 1/3 at this time indicating low risk. Will repeat qSOFA score with any clinical changes. Patient has been under the treatment course of acyclovir, Keflex, for acute shingles. He completed Prednisone 2 days ago. Will continue with IV Acyclovir as sepsis process could potentially be viral in nature given recent shingle infection. He does chronically take metformin, which could cause an elevation in plasma lactate. Will hold at time of admission, and manage glycemic control with insulin. Monitor Accu-Cheks and continue on home regimen of NovoLog and Levemir. SCDs to bilateral lower extremity for DVT prophylaxis. Patient does wish to be a full code and this orders written. At time of discharge medical care will return to primary care provider, Dr Montilla. 03/02/18 Clinically improving - BP increasing, WBC normalize, creatinine decreased from 1.5 to 1.0, lactate decreased, repeat CXR without infiltrate. Will continue cefepime and levofloxacin for coverage, can stop vancomycin. Continue IVF of NS at 125cc/hr. Will continue to hold antihypertensives. Encourage ambulation. Add nasal saline for nasal congestion. Transfer to medical floor for care. 1855 Rechecked on patient this evening. Continues to do well. BP increasing (130 systolic). Breathing stable. Will decrease IVF to 75cc/hr. 03/03/18 Clinically improved. BP stable. WBC normal at 7.2 and creatinine at baseline of 0.8. No f/c. Sugars stable. Can discharge to home - medically stable Will have pt HOLD Cozaar - BP stable. May continue Metoprolol. Patient will monitor his BP and pulse. Can restart home diabetic medications. Will change cephalexin to amoxicillin for 5 days for continued antibiotic coverage. F/U with Dr Montilla in 1 week for reevaluation. See orders for details. Time spent with patient: discharge greater than 30 minutes Resuscitation Status: Full Code Discharge Plan - Discharge Disposition Discharge Date: 03/03/18 Disposition: 01 Discharged Home, Self-Care *Condition: Stable Reason For Visit (Visit label in EMR): severe sepsis, unknown etiology - Discharge Medications *Discharge Medications: New Sodium Chloride [Deep Sea] 2 spray EA NOSTRIL QID spray Amoxicillin 500 mg PO TID #15 cap Continue Metoprolol Succinate 25 mg PO HS Aspirin [Adult Low Dose Aspirin EC] 81 mg PO HS Insulin Aspart [Novolog] 10 unit SQ WS Insulin Aspart [Novolog] 5 unit SQ WL Insulin Detemir [Levemir] 30 unit SQ BID Meclizine [Antivert] 25 mg PO TID PRN PRN Reason: Dizziness Diclofenac [Voltaren] 1 applicatio TP DAILY PRN PRN Reason: Pain Atorvastatin Calcium 40 mg PO HS Saxagliptin [Onglyza] 5 mg PO DAILY PEG 3350 17gm PACKET [Miralax] 17 gm PO DAILY PRN PRN Reason: Constipation Tramadol [Ultram] 50 mg PO DAILY PRN PRN Reason: Pain Acyclovir [Zovirax] 800 mg PO 5XD Loratadine [Claritin] 10 mg PO HS Insulin Aspart [Novolog] 7 unit SQ WB Metformin HCl [Glucophage] 1,000 mg PO BID omega-3 fatty acids 1,000 mg capsule 1,000 mg PO DAILY Discontinued Losartan [Cozaar] 50 mg PO DAILY Triamterene/Hctz 37.5/25 Tab [MAXZIDE-25 eqv] 0.5 tab PO DAILY cephALEXin [Cephalexin] 500 mg PO BID - Discharge Packet/Instructions *Diet: 2000 KCAL ADA low sodium *Activity: As tolerated *Pain Management/Treatment: Tylenol and tramadol as needed. *Wound Care: N/A Additional Instructions: May use nasal saline 4 times a day as needed for nasal congestion. Monitor blood pressure and pulse at home. Stop Cozaar (losartan) and Maxide (triamterene/HCTZ). *Expected Signs/Symptoms: Stabilty of blood pressures. Decreased dizziness and weakness. *Notify Physician if: Temp >100.4. Blood pressure lower than 100 systolic or above 150 systolic. *During Business Hours Contact: Dr Montilla *After Business Hours Contact: [place] [facility] [place]illa [place]. *Pending Lab/Results: No Pending Lab - Referrals/Follow Up *Referrals/Follow Up: Joni Montilla MD [Family Provider] - 1 Week (Hospital follow up for severe sepsis with no identifiable source. APPOINTMENT ON 03/10 CHECK IN AT 900.) - Patient Handouts Patient Handouts: Sepsis (GEN) - Dismissal Complete Discharge Instructions are:: Complete Physician Narrative - Narrative Physician: Pj Salgado MD Attestation Narrative: Date: 03/09/18 Time: 1634 I have independently interviewed and examined patient prior to discharge. See my progress note for details. Medically stable for discharge to home.
== END 2018-03-03 13:46 | disposition home or self-care (01) | DRG 872 ==
LOC: ED 16:59 → CCU 18:21 → MED 03-02 14:50
PROVIDERS: ADMIT Hospitalist; ATTEND Hospitalist